=== PATIENT | male | born 1995 | race Caucasian/White ===

== ENCOUNTER 2018-06-20 08:12 | Emergency (ER) | payer BC ==
--- NOTE | 2018-06-20 09:05 | RAD ---
RADIOGRAPH LEFT WRIST 3 VIEWS: Date: 06/20/18 Time: 0841 hours HISTORY: 22-year-old male with traumatic left wrist pain after fall. FINDINGS: There is a nondisplaced linear fracture across the waist of the navicular bone. No other fracture is visualized. No dislocation. IMPRESSION: Acute, traumatic, nondisplaced fracture of the scaphoid waist. POS: [facility]
[2018-06-20] MEDS ORDERED: Ibuprofen 200 MG TAB ONE (09:46)
== END 2018-06-20 10:46 | disposition home or self-care (01) ==
LOC: ERS 08:12
DX: S62.002A Unspecified fracture of navicular [scaphoid] bone of left wrist, initial encounter for closed fracture (principal); F98.8 Other specified behavioral and emotional disorders with onset usually occurring in childhood and adolescence; Z79.899 Other long term (current) drug therapy; V00.131A Fall from skateboard, initial encounter
CPT/HCPCS: 29125

== ENCOUNTER 2018-06-24 10:20 | Outpatient (CLI) | payer BC ==
--- NOTE | 2018-06-24 13:44 | CT ---
CT LEFT WRIST: Date: 06/24/18 PROVIDED CLINICAL HISTORY: Scaphoid fracture. COMPARISON: 06/20/18. FINDINGS: There is an acute nondisplaced fracture involving the scaphoid waist. No additional fracture is evide nt. There is mild negative ulnar variance. Alignment appears otherwise anatomic. There is a small rad iocarpal joint effusion. The regional soft tissue demonstrate an otherwise unremarkable unenhanced CT appearance. There is a bone island present within the trapezium. IMPRESSION: Nondisplaced scaphoid waist fracture. POS: [facility]
== END 2018-06-24 10:21 | disposition home or self-care (01) ==
LOC: CT 10:20
PROVIDERS: ATTEND Orthopaedic Surgery Hand Surgery
DX: S62.002D Unspecified fracture of navicular [scaphoid] bone of left wrist, subsequent encounter for fracture with routine healing (principal)